=== PATIENT | female | born 1975 | race Caucasian/White ===

== ENCOUNTER 2018-10-07 19:22 | Emergency (ER) | payer MEDICAID, OTHER ==
[~2018-10-07] VITALS: Ht 160 cm; Wt 72.7 kg
[2018-10-07 19:26] VITALS: BP 112/79
[2018-10-07] MEDS ORDERED: METH10 PO (19:35)
== END 2018-10-07 21:00 | disposition left against medical advice (07) ==
LOC: EMS 19:24
DX: R21 Rash and other nonspecific skin eruption (principal); L03.115 Cellulitis of right lower limb; F41.9 Anxiety disorder, unspecified; Z53.21 Procedure and treatment not carried out due to patient leaving prior to being seen by health care provider

== ENCOUNTER 2019-04-14 19:05 | Emergency (ER) | payer MEDICAID ==
[~2019-04-14 19:05] MED LIST: METH10 PO
== END 2019-04-14 19:30 | disposition left against medical advice (07) ==
LOC: EMS 19:06
DX: Z53.21 Procedure and treatment not carried out due to patient leaving prior to being seen by health care provider (principal)

== ENCOUNTER 2019-08-27 18:26 | Emergency (ER) | payer MEDICAID ==
[~2019-08-27] VITALS: Ht 157.5 cm; Wt 65.9 kg
[2019-08-27 19:42] LABS: BASOPHILS % (AUTO) 0.4 % (0.0-2.0); EOSINOPHILS % (AUTO) 0.9 % (1.0-6.0); HEMATOCRIT 31.4 % (36-46); HEMOGLOBIN 9.8 g/dL (12.0-16.0); LYMPHOCYTES # (AUTO) 1.7 K/uL (1.0-4.8); LYMPHOCYTES % (AUTO) 20.3 % (22.0-44.0); MEAN CORPUSCULAR HEMOGLOBIN 22.1 pg (26.0-34.0); MEAN CORPUSCULAR HGB CONC 31.4 G/dL (31.0-37.0); MEAN CORPUSCULAR VOLUME 70 fL (80-100); MONOCYTES # (AUTO) 0.7 K/uL (0.1-1.0); MONOCYTES % (AUTO) 8.9 % (2.0-9.0); NEUTROPHILS # (AUTO) 5.7 K/uL (1.8-7.7); NEUTROPHILS % (AUTO) 69.5 % (40.0-70.0); PLATELET COUNT (AUTO) 378 K/uL (150-450); RED BLOOD CELL COUNT(AUTO) 4.46 MIL/uL (4.00-5.20); RED CELL DISTRIBUTION WIDTH 17.4 % (11.5-14.5)
[2019-08-27 19:55] LABS: ANION GAP 6 mmol/L (8-16); CARBON DIOXIDE 28 mmol/L (22-29); CHLORIDE 103 mmol/L (98-107); CREATININE 0.84 mg/dL (0.60-1.30); GLOMERULAR FILTR. RATE CALC > 60 mL/min (>60); GLUCOSE,RANDOM 137 mg/dL (70-110); POTASSIUM 3.6 mmol/L (3.5-5.1); SODIUM SERUM 137 mmol/L (136-145); UREA NITROGEN, BLOOD 14 mg/dL (7-18)
[2019-08-27 20:08] LABS: ALANINE AMINOTRANSFERASE 32 U/L (12-78); ALBUMIN 2.8 g/dL (3.4-5.0); ALKALINE PHOSPHATASE 152 U/L (46-116); ASPARTATE AMINOTRANSFERASE 24 U/L (15-37); BILIRUBIN,TOTAL 0.4 mg/dL (0.1-1.0); HCG,QUANTITATIVE < 1 mIU/mL (0-6); LIPASE 79 U/L (73-393); TOTAL PROTEIN, SERUM 8.7 g/dL (6.4-8.2)
[2019-08-27] MEDS ORDERED: KETOROLAC TROMETHAMINE 30 MG/ML VIAL IM ONE (20:15)
[2019-08-27 22:00] VITALS: BP 119/72
== END 2019-08-27 23:30 | disposition left against medical advice (07) ==
LOC: EMS 18:31
DX: R10.31 Right lower quadrant pain (principal); Z88.1 Allergy status to other antibiotic agents; Z88.2 Allergy status to sulfonamides; Z79.899 Other long term (current) drug therapy
CPT/HCPCS: 36415; 76856; 80053; 83690; 84702; 85025; 96372; 99285; J1885

== ENCOUNTER 2020-12-24 12:38 | Emergency (ER) | payer OTHER ==
[~2020-12-24 12:38] MED LIST changes: +ACET650S24 PR; +ASCO500 PO; +BISA10SU11 PR; +DIPH50 PO; +DOCU-270 PO; +HALO5I IM; +HYDR2TAB37 PO; +LORA2I IM; +LORA2I IVP; +MERO1PIG IV; +MULT-248 PO; +PANT-31 PO; +PERCT PO; +PROM-163 PO; +RISP0.5T39 PO; +VANC750F2 IVP
== END 2020-12-24 12:45 | disposition left against medical advice (07) ==
LOC: EMS 12:44
DX: Z48.00 Encounter for change or removal of nonsurgical wound dressing (principal); Z53.21 Procedure and treatment not carried out due to patient leaving prior to being seen by health care provider
CPT/HCPCS: 99283

== ENCOUNTER 2022-10-28 02:18 | Emergency (ER) | payer OTHER ==
[~2022-10-28] VITALS: Ht 157.5 cm; Wt 72.7 kg
[~2022-10-28 02:18] MED LIST changes: -DOCU-270 PO; +DOCU-385 PO; -HALO5I IM; +HALO5VIA16 IM; -PROM-163 PO; +PROM-223 PO
[2022-10-28 02:30] VITALS: BP 141/77; PULSE 72; RESP 18; TEMP 98.1
== END 2022-10-28 03:15 | disposition left against medical advice (07) ==
LOC: EMS 02:19
DX: M79.641 Pain in right hand (principal); N64.4 Mastodynia; R51.9 Headache, unspecified; Z53.21 Procedure and treatment not carried out due to patient leaving prior to being seen by health care provider
CPT/HCPCS: 99281; Z7502

== ENCOUNTER 2024-12-13 17:00 | Emergency (ER) | payer MEDICAID ==
[~2024-12-13] VITALS: Ht 157.5 cm; Wt 68.2 kg
[~2024-12-13 17:00] MED LIST changes: -DIPH50 PO; +DIPH50CA39 PO
[2024-12-13 17:04] VITALS: BP 147/86; PULSE 88; RESP 32; TEMP 97.3; O2SAT 94
[2024-12-13 17:19] LABS: COVID AG,FIA SOURCE NASAL SWAB
[2024-12-13 17:26] LABS: APPEARANCE,URINE HAZY (CLEAR); GLUCOSE, URINE (UA) NEGATIVE (NEGATIVE); LEUKOCYTE ESTERASE ,URINE NEGATIVE (NEGATIVE); NITRATE,URINE NEGATIVE (NEGATIVE); OCCULT BLOOD,URINE NEGATIVE (NEGATIVE); PH,URINE DRUG SCREEN 6.0 (5.0-8.0); SPECIFIC GRAVITIY, URINE 1.024 (1.003-1.030)
[2024-12-13 17:29] LABS: ALCOHOL, URINE DRUG SCREEN NEGATIVE (NEGATIVE); AMPHET/METH SCREEN,URINE POSITIVE (NEGATIVE); BARBITURATE SCREEN, URINE NEGATIVE (NEGATIVE); CANNABINOID SCREEN,URINE NEGATIVE (NEGATIVE); COCAINE SCREEN,URINE NEGATIVE (NEGATIVE); METHADONE SCREEN, URINE NEGATIVE (NEGATIVE)
[2024-12-13 17:33] LABS: PLATELET COUNT (AUTO) 204 K/uL (150-450); RED BLOOD CELL COUNT(AUTO) 4.02 MIL/uL (4.00-5.20); RED CELL DISTRIBUTION WIDTH 14.8 % (11.5-14.5); WHITE BLOOD COUNT (AUTO) 6.7 K/uL (4.5-11.0)
[2024-12-13 17:38] LABS: SQUAMOUS EPITHELIAL CELL,UR Rare /LPF (None Seen)
[2024-12-13 17:40] LABS: SARS-COV2 (COVID) ANTIGEN,FIA Negative (Negative)
[2024-12-13 17:41] LABS: INFLUENZA TYPE A NEGATIVE FOR TYPE A (NEGATIVE); INFLUENZA TYPE B NEGATIVE FOR TYPE B (NEGATIVE)
[2024-12-13 17:46] LABS: CALCIUM, TOTAL 8.9 mg/dL (8.8-10.5); CREATININE 1.05 mg/dL (0.60-1.30); GLOMERULAR FILTR. RATE CALC 56 mL/min (>60); GLUCOSE,RANDOM 95 mg/dL (70-110); SODIUM SERUM 138 mmol/L (136-145); UREA NITROGEN, BLOOD 12 mg/dL (7-18)
[2024-12-13 17:50] LABS: ASPARTATE AMINOTRANSFERASE 20.0 U/L (15-37); TOTAL PROTEIN, SERUM 7.6 g/dL (6.4-8.2)
[2024-12-13 17:55] LABS: TROPONIN I-HIGH SENSITIVITY Less Than 4 ng/L (<51)
== END 2024-12-13 18:39 | disposition left against medical advice (07) ==
LOC: EMS 17:00
DX: R50.9 Fever, unspecified (principal); Z53.21 Procedure and treatment not carried out due to patient leaving prior to being seen by health care provider; Z20.822 Contact with and (suspected) exposure to COVID-19
CPT/HCPCS: 80048; 80076; 80307; 81001; 84484; 84703; 85025; 87077; 87086; 87186; 87804; 93005; 99281